=== PATIENT | male | born 2000 | race Caucasian/White ===

== ENCOUNTER 2020-08-04 14:01 | Emergency (ER) | payer OTHER ==
[~2020-08-04] VITALS: Ht 177.8 cm; Wt 93.9 kg
[2020-08-04 14:01] VITALS: BP 124/73
[2020-08-04] MEDS ORDERED: LIDOCAINE HCL/MPF 1% 30 ML VIAL IJ ONE (14:19)
[2020-08-04] MEDS ORDERED: LIDOCAINE HCL/PF 1% 30 ML VIAL TP ONE (14:30)
--- NOTE | 2020-08-04 15:02 | NUR ---
I&D done by Dr. Meng, cleansed and wrapped with clean dressing. Patient discharged to home in stable condition. Written and verbal after care instructions given. Patient verbalizes understanding of instruction.
== END 2020-08-04 15:03 | disposition home or self-care (01) ==
LOC: ER 14:08
DX: L03.011 Cellulitis of right finger (principal)
CPT/HCPCS: 10060; 99283; J3490 ×2